=== PATIENT | female | born 1950 | race Hispanic/Latino ===

== ENCOUNTER 2017-06-05 10:29 | Inpatient (IN) | payer MEDICARE, MEDICAID ==
[2017-06-05 11:13] LABS: Hematocrit 36.5 % (36.0-47.0); Mean Platelet Volume 9.4 fL (7.4-10.4); Red Blood Cell (RBC) Count 3.47 mill/uL (4.20-5.40); White Blood Cell (WBC) Count 4.5 thou/uL (4.8-10.8)
[2017-06-05 11:37] LABS: ALT (SGPT) 25 U/L (8-55); AST (SGOT) 41 U/L (5-34); Alkaline Phosphatase 207 U/L (40-150); Anion Gap 14 mmol/L (10-20); BUN (Urea Nitrogen) 12 mg/dL (9.8-20.1); Bilirubin, Total 0.8 mg/dL (0.2-1.2); Calc. Creatinine Clearance 0 mL/min (70-130); Calcium 7.9 mg/dL (7.8-10.44); Carbon Dioxide 26 mmol/L (23-31); Chloride 97 mmol/L (98-107); Estimated GFR-MDRD 14; Globulin 4.2 g/dL (2.4-3.5); Protein, Total 6.1 g/dL (6.0-8.3)
[2017-06-05 11:39] LABS: Lactic Acid - Sepsis 4.8 mmol/L (0.5-2.2)
[2017-06-05 11:43] LABS: Neutrophil 66 % (42-75)
[2017-06-05] MEDS ORDERED: VANCOMYCIN HCL IVPB SCH (12:00)
[2017-06-05] MEDS ORDERED: Piperacillin/Tazobactam 2.25 GM in Sodium Chloride 0.9% 100 ML IVPB SCH (12:00)
[2017-06-05 12:26] LABS: Oxyhemoglobin 92.9 % (94.0-97.0); Sodium 136 mmol/L (135-148)
[2017-06-05 12:27] LABS: Mode ROOM AIR.; Modified Allen's Test POSITIVE
--- NOTE | 2017-06-05 13:03 | RAD ---
UPRIGHT PORTABLE CHEST ONE VIEW: History: 67-year-old female with dyspnea. Comparison: 04-23-17 FINDINGS: Left sided dual-lumen venous access catheter. Minimal cardiomegaly with some bilateral vascular tera estion. No confluent pneumonia or overt alveolar edema. Appearance actually appears to be slightly i mproved from prior 04-23-17 study. IMPRESSION: Cardiomegaly with vascular congestion without overt alveolar edema or confluent pneumonia. Appearanc e actually appears slightly improved from prior study. POS: [facility]
[2017-06-05] MEDS ORDERED: Ondansetron ODT 4 MG TAB SL PRN (14:38)
[2017-06-05] MEDS ORDERED: Ondansetron HCl/PF 4 MG/2 ML Vial IVP PRN (14:38)
[2017-06-05] MEDS ORDERED: Piperacillin/Tazobactam 0.75 GM, Admixture Fee 1 EACH in Sodium Chloride 0.9% 100 ML IVPB SCH (14:45)
[2017-06-05] MEDS ORDERED: Sodium Chloride 0.45% 1,000 ML IV SCH (14:45)
[2017-06-05] MEDS ORDERED: Vancomycin HCl 1 GM in Premix Bag 1 BAG IVPB SCH ×2 (14:45→16:45)
[2017-06-05 14:49] LABS: Troponin I 0.031 ng/mL (< 0.028)
[2017-06-05] MEDS ORDERED: Bisacodyl 5 MG TAB PO PRN (15:36)
[2017-06-05] MEDS ORDERED: Acetaminophen 325 MG TAB PO PRN (15:36)
[2017-06-05] MEDS ORDERED: Calcium Carbonate 500 MG ChewTAB PO PRN (15:36)
[2017-06-05] MEDS ORDERED: ISOVUE-370 76%-LOCM 1 ML ONE (15:55)
[2017-06-05 16:29] LABS: PTT 31.5 SEC (22.9-36.1)
--- NOTE | 2017-06-05 16:37 | PDOC.EVN ---
Event Note - Event Note Event Note: Attending H&P I personally evaluated the patient and discussed the management with Dr. Land. I have reviewed the written H&P and it is repeated by me. I agree with the History, Examination, Assessment and Plan documented above with any addition or exceptions noted below. Ms. Hoffmann has pulmonary edema, without compelling evidence of pneumonia. However, the nurse note her dialysis hemasplit site appears possibly infected, and her right arm AV fistula wound appears to have possible dehiscence. Cultures obtained from both sites. Wound care has been consulted. With her elevated lactate and possible wound infection, antibiotics will be continued. Had vanc and zosyn dose in ER, so she is currently covered.
[2017-06-05] MEDS ORDERED: HOLD VANCOMYCIN FOR LEVEL >20 FS SCH (16:45)
[2017-06-05] MEDS ORDERED: Vancomycin HCl 1.25 GM in Sodium Chloride 0.9% 250 ML 250 ML IVPB SCH (16:45)
[2017-06-05] MEDS ORDERED: Vancomycin Sliding Scale 1 EACH FS ONE (16:45)
[2017-06-05] MEDS ORDERED: Vancomycin HCl 750 MG in Sodium Chloride 0.9% 250 ML 250 ML IVPB SCH (16:45)
[2017-06-05] MEDS ORDERED: Vancomycin HCl 500 MG in Sodium Chloride 0.9% 100 ML IVPB SCH (16:45)
--- NOTE | 2017-06-05 16:52 | CON ---
DATE OF CONSULTATION: 06/05/2017 RENAL MEDICINE HISTORY OF PRESENT ILLNESS: Ms. Hoffmann is a 67-year-old white female who was admitted for shortness of breath. She was found to be in CHF. She also had an associated cough with whitish-greenish coloring. Due to the worsening shortness of breath, a renal consult was done. The patient is currently undergoing hemodialysis for fluid removal. I am at the bedside supervising her dialysis. I am targeting between 2 and 3 liters of fluid removal with this patient. REVIEW OF SYSTEMS: Positive for shortness of breath, no chest pain. Positive for productive cough. No nausea, no vomiting, no sore throat, no syncopal episode, no diarrhea or constipation, no abdominal pain, no hematochezia, no melena, no hematemesis. No gross hematuria. No headache, no diplopia, no ear discharge. PAST MEDICAL HISTORY: Includes, 1. ESRD - on maintenance hemodialysis - secondary to presumed diabetic nephropathy. 2. Type 2 diabetes mellitus. 3. History of morbid obesity. 4. Longstanding hypertension. 5. DJD. 6. Diabetic neuropathy. 7. Peripheral vascular disease. 8. Coronary artery disease. 9. Diastolic dysfunction. 10. COPD. 11. Obstructive sleep apnea. 12. Status post FL. 13. Diabetic gastroparesis. PAST SURGICAL HISTORY: 1. Status post PD catheter placement with subsequent removal. 2. Status post AV fistula placement. 3. Status post cuffed dialysis catheter placement. 4. Status post bilateral metatarsal amputation. 5. Status post cholecystectomy. 6. Status post inguinal hernia repair. 7. Status post cataract surgery. 8. Status post section. 9. Status post cholecystectomy. ALLERGIES: AMBIEN and MACROBID. TRAUMA: None. IMMUNIZATIONS: Up to date. HOSPITALIZATIONS: Please see past medical history. FAMILY HISTORY: Positive family history of ESRD. SOCIAL HISTORY: The patient lives in [place]. Single, lives with her daughter. Originally from [place], . Sedentary lifestyle. Status post blood transfusion. Currently, no smoking, no drug abuse. MEDICATIONS: Dulcolax 10 mg daily p.r.n., Tums 1000 mg q.4, Zosyn 2.25 grams IV q.8 hours, status post vancomycin. PHYSICAL EXAMINATION: VITAL SIGNS: Blood pressure is 125/91, heart rate 112, respiratory rate 24, pulse ox 95%, temperature 98.2. GENERAL: Awake, obese, comfortable, not in overt distress. SKIN: Adequate turgor. HEENT: Pinkish conjunctivae, anicteric sclerae. NECK: No neck mass, no carotid bruits, no JVD. CHEST: No deformities. LUNGS: Decreased breath sounds. HEART: Normal sinus rhythm, tachycardic. No murmur, no gallops, no rubs. ABDOMEN: Globular, soft, nontender, no masses. EXTREMITIES: Positive for edema. NEUROLOGIC: Awake and oriented to 3 spheres. Moving all extremities. No tremors, no asterixis. IMAGING AND LABORATORY DATA: Chest x-ray of 06/05/2017 shows cardiomegaly with CHF. White count 4.5, hemoglobin 11.3. Sodium 133, potassium 3.7, chloride 97, carbon dioxide 26, BUN 12, creatinine 3.28, glucose 130. Lactic acid is 4.8, calcium is 7.9, AST 41, ALT 25, albumin 1.9. ASSESSMENT AND PLAN: 1. Congestive heart failure - emergent hemodialysis to attempting to max out fluid removal. We will attempt between 2 and 3 liters. 2. End-stage renal disease, stable. Tolerating current hemodialysis. I am at the bedside supervising her dialysis. We will plan Sunday, Sunday, and Sunday regular hemodialysis of 4 hour each treatment. 3. Productive cough/rue wound- empiric IV antibiotics, on Zosyn Status post vancomycin. 4. Anemia - borderline. Continue to observe. 5. Hypoalbuminemia. Nepro 1 can b.i.d. 6. Recheck basic metabolic panel and CBC in a.m. MTDD
--- NOTE | 2017-06-05 17:15 | HP-2 ---
CODE STATUS: Full. PRIMARY CARE PHYSICIAN: Martir Kumar M.D. ADMITTING ATTENDING: Leonard Wilcox M.D. RESIDENT: Wing Land DO. HISTORIAN: The patient and her family. SPECIALISTS: Dr. North of Nephrology and Dr. Harris of Cardiology. CHIEF COMPLAINT: Shortness of breath. HISTORY OF PRESENT ILLNESS: A 67-year-old female with a history of end-stage renal disease, Sunday, Sunday and Sunday dialysis and status post coronary artery stent and history of atrial fibrillation, who presents to the emergency room from clinic. In the clinic, she went to see her PCP because of concerns of shortness of breath and cough for approximately 2 weeks. In the clinic, she had a pulse ox of 92% and was sent to the emergency room for increased oxygen need. When in the emergency room, her oxygen saturations were consistently above 95%; however, she was found to be both tachycardic and tachypneic. She denied any history of fever, chills or productive cough. The only symptoms that she complained were shortness of breath and dry cough for approximately 2 weeks. In the emergency room because of the tachycardia, tachypnea and recent shortness of breath, there was a concern for sepsis and patient was given 2.25 grams of Zosyn and was started on fluid resuscitation. PAST MEDICAL HISTORY: Includes end-stage renal disease, atrial fibrillation, type 2 diabetes, hypertension and coronary artery disease. PAST SURGICAL HISTORY: All toes have been amputated bilaterally. Previous left arm shunt and a current existing right arm shunt. She is status post coronary artery stenting earlier this year. ALLERGIES: AMBIEN and MACROBID. MEDICATIONS: Carvedilol 3.125 mg daily, Levemir 50 units daily, metoprolol 50 daily, Floranex daily, Coumadin 2 mg daily, Requip 0.25 mg daily, Ativan 0.5 mg q.8 hours p.r.n. for anxiety, pantoprazole 40 mg daily, Lantus 50 units daily, Januvia 50 mg b.i.d., aspirin 81, atorvastatin 40 mg daily, Zofran 4 mg p.r.n. nausea and vomiting, Voltaren 1%, Pataday 0.2%, Flonase daily and ammonium lactate 12% lotion. SOCIAL HISTORY: The patient denies tobacco, alcohol or drug use. REVIEW OF SYSTEMS: General: Denies fever, chills, changes in appetite or weight, night sweats or fatigue. Eyes: Denies vision change or eye pain. ENT : Denies nasal congestion. Respiratory: Admits to dry cough and shortness of breath. Cardiovascular: Denies any chest pain, palpitations or edema. Gastrointestinal: Denies nausea or vomiting. Genitourinary: Denies any changes. Patient is borderline oliguric. Skin: Denies rash or lesions. Musculoskeletal: Denies pain or tenderness. Neurologic: Denies any numbness, weakness or anxiety. Psychiatric: Denies anxiety or depression. PHYSICAL EXAMINATION: VITAL SIGNS: Blood pressure is 152/80, pulse is 100, respiratory rate is 32, T- max is 97.6 and pulse ox 97% on room air. Current weight 145 kilograms. GENERAL: The patient is alert and oriented x3, in no apparent distress. HEENT: PERRLA, EOMI. NECK: Supple, without lymphadenopathy. CARDIOVASCULAR: The patient has irregularly irregular heart rate without murmur. RESPIRATORY: Normal effort. No contractions. There are crackles in all lung askew bilaterally. SKIN: Warm and dry. ABDOMEN: Soft and nontender. Bowel sounds in all 4 quadrants without mass or distention. EXTREMITIES: No edema. MUSCULOSKELETAL: Tone is normal. NEUROLOGICAL: There are no focal neurological deficits. Cranial nerves II-XII are grossly intact. LABORATORY AND IMAGING DATA: CBC: Hemoglobin 11.3, hematocrit 36.5, white count 4.5, platelets 164, MCV is 105. CMP: Sodium 133, potassium 3.7, chloride 97, CO2 of 26, BUN 12, creatinine 3.28, glucose 130, calcium 7.9, total serum protein is 6.1, albumin 1.9, AST 41, ALT 25, alkaline phosphatase 207, total bilirubin 0.7 and lactate 4.8. GFR is 14. ABG shows a pH of 7.44, CO2 of 42.4 and pO2 of 73.4. EKG shows atrial fibrillation, irregular rhythm with a rate of 110. No ST changes. Chest x-ray per radiologic read shows some pulmonary congestion without evidence of pneumonia or alveolar edema. It is noted that this is an apparent improvement of her previous studies. ASSESSMENT AND PLAN: This is a 67-year-old female with likely volume overload. 1. Acute dyspnea secondary to volume overload. Consult her java web engineer, Dr. North. Admit on tele. Provide oxygen p.r.n. D-dimer, rule out what is the likelihood of pulmonary embolism. In general, trend her lactate q.3 hours until downtrends. At this point, it is unlikely that this is an infectious process. We will monitor the cultures that were drawn. 2. Hypertension is likely secondary to overload vitals q.4 hours and continue home medications. 3. Atrial fibrillation with rapid ventricular response as above. We will make a change to her medications and we will reevaluate after her likely dialysis today or tomorrow. Consult her transit mix operator, Dr. Harris, and get a PT, INR to make sure that she is anticoagulated appropriately. 4. Tachypnea. The patient was not tachypneic at the time of exam; however, this fluctuates most likely secondary to the volume overload. 5. End-stage renal disease. Hemodialysis today or tomorrow pending Dr. Nroth's recommendations. 6. Lactic acidosis. As above, repeat in the morning. Blood culture is pending. 7. Type 2 diabetes. Continue her home insulin regimen, add SSI and Accu-Cheks a.c. and at bedtime. 8. Obesity. [place] on weight loss MTDD
[2017-06-05] MEDS ORDERED: Diltiazem 125 MG in Sodium Chloride 0.9% 100 ML IVPB SCH (19:15)
[2017-06-05] MEDS ORDERED: Benzonatate 100 MG CAP PO PRN (20:45)
[2017-06-05] MEDS ORDERED: Piperacillin/Tazobactam 2.25 GM, Admixture Fee 1 EACH in Sodium Chloride 0.9% 100 ML IVPB SCH (21:00)
[2017-06-05] MEDS ORDERED: FLU VACC TS2017-18 (>65YR) 0.5 ML SYRINGE IM ONE (21:00)
[2017-06-05 21:29] LABS: Troponin I 0.018 ng/mL (< 0.028)
[2017-06-05] MEDS: Enoxaparin Sodium 100 MG/ML SYRINGE SC SCH (22:53)
--- NOTE | 2017-06-05 23:10 | CT ---
CTA OF THE THORAX UTILIZING IV CONTRAST AND PE PROTOCOL AND 3D REFORMATTED IMAGING 06/05/17 COMPARISON: Chest radiograph dated 06/05/17. FINDINGS: The patient's left IJ dialysis catheter projects into the azygos vein. No central or segmental pulmonary embolus is demonstrated. There are small bilateral pleural effusio ns. There is moderate cardiomegaly. There is severe vascular calcification involving the coronary ar teries. Visualized upper abdomen demonstrates postsurgical change of a prior cholecystectomy. There is a 2.5 cm adenoma involving the right adrenal gland. No definite acute osseous abnormality is alayna dent. IMPRESSION: 1. No central or segmental pulmonary embolus. 2. Small bilateral pleural effusions may reflect changes of volume overload or mild CHF. 3. The dialysis catheter within the left IJ is positioned in the azygos vein. Would recommend r epositioning. 4. Right adrenal adenoma. 5. Cholecystectomy. POS: [facility]
[2017-06-05] MEDS: Piperacillin/Tazobactam 2.25 GM in Sodium Chloride 0.9% 100 ML IVPB SCH (23:55)
[2017-06-06 04:43] LABS: #Eosinphils 0.1 thou/uL (0.0-0.7); #Lymphocytes 1.1 thou/uL (1.20-3.40); #Monocytes 0.4 thou/uL (0.11-0.59); #Neutrophils 2.6 thou/uL (1.40-6.50); %Basophils 1.1 % (0.0-1.0); %Eosinophils 2.6 % (0.0-10.0); %Lymphocytes 25.2 % (21.0-51.0); %Monocytes 9.6 % (0.0-10.0); Hematocrit 34.7 % (36.0-47.0); Mean Platelet Volume 9.1 fL (7.4-10.4); Red Blood Cell (RBC) Count 3.31 mill/uL (4.20-5.40); White Blood Cell (WBC) Count 4.2 thou/uL (4.8-10.8)
[2017-06-06 05:13] LABS: Anion Gap 12 mmol/L (10-20); BUN (Urea Nitrogen) 8 mg/dL (9.8-20.1); Calc. Creatinine Clearance 34 mL/min (70-130); Calcium 7.5 mg/dL (7.8-10.44); Carbon Dioxide 25 mmol/L (23-31); Chloride 101 mmol/L (98-107); Estimated GFR-MDRD 19
[2017-06-06] MEDS: Piperacillin/Tazobactam 2.25 GM in Sodium Chloride 0.9% 100 ML IVPB SCH ×2 (06:03→14:26)
--- NOTE | 2017-06-06 06:07 | CON ---
DATE OF CONSULTATION: 06/05/2017 HISTORY OF PRESENT ILLNESS: Nishant Hoffmann is a 67-year-old female who does not speak Arabic and the history was obtained from review of her record. She was initially seen by Dr. Harris in 06/2014 for a non-STEMI. It was felt that she should ultimately undergo cardiac catheterization once her pneumonia had improved. She was again seen in 01/2015 when she presented with fever, sepsis and abnormal cardiac enzymes. She ultimately underwent cardiac catheterization and was found to have severe 3-vessel disease. She was seen in consultation with Dr. Malachi Saucedo and it was felt that she was not a good surgical candidate and that she probably would have very poor recovery from bypass. She underwent bare metal stent placement by Dr. Joel in the proximal and mid RCA with a 4.0 x 30 mm stent postdilated to 4.5 mm and Integrity 3.0 x 26 mm stent in the proximal and mid LAD postdilated with 3.5 mm balloon. She has had multiple admissions over the years for dialysis with problems with dialysis catheter as well as AV fistula access. Most recently, she was admitted in 04/2017. Echocardiogram on that admission revealed ejection fraction of 50%-55% with mild left atrial enlargement, mild mitral regurgitation , sclerotic aortic valve and mild tricuspid regurgitation. She had presented with an infected AV fistula. She also had missed peritoneal dialysis for 5 days and became extremely fluid overloaded. She was in atrial fibrillation with rapid ventricular response, treated with intravenous Cardizem. Once she was restarted on her usual medications and dialyzed, apparently the rate was controlled. It is unclear from discharge summary if she ever returned to sinus rhythm. She now presents with complaints of shortness of breath and cough for 2 weeks. She denies any chest discomfort. She has been found to be in atrial fibrillation with rapid ventricular response. There was concern for sepsis. She was given Zosyn 2.25 mg and has been started on vancomycin. PAST MEDICAL HISTORY: End-stage renal disease, atrial fibrillation, diabetes, hypertension, hyperlipidemia, coronary artery disease status post stent placement. OPERATIONS: Bare metal stent placement in the proximal and mid LAD and proximal and mid RCA, surgery for AV shunts. ALLERGIES: AMBIEN, MACROBID. MEDICATIONS: Aspirin 81 mg daily, atorvastatin 40 daily, calcitriol 0.25 mcg daily, calcium acetate t.i.d., Tums 500 mg t.i.d., carvedilol 3.125 b.i.d., Colace 100 b.i.d., Flonase 1 spray each side b.i.d., [place] p.r.n., Ativan 0.5 mg t.i.d. p.r.n., losartan 50 daily, melatonin 5 mg p.r.n., metoprolol 50 daily , pantoprazole 40 at bedtime, sertraline 50 daily, Januvia 50 mg daily, tramadol 50 mg t.i.d. p.r.n., warfarin 2 mg daily. SOCIAL HISTORY: She does not smoke or drink. REVIEW OF SYSTEMS: Unobtainable due to the language barrier. No forest resources professor available at this time. PHYSICAL EXAMINATION: VITAL SIGNS: Blood pressure 125/91, pulse of 120, irregularly irregular. HEENT: PERRL. NECK: Supple. CHEST: Reveals crackles in the bases bilaterally. CARDIAC: S1 and S2 are normal, without any S3, S4 or murmurs. The pulse is irregularly irregular. ABDOMEN: Obese, normal bowel sounds, no tenderness. EXTREMITIES: Revealed 3-4+ edema bilaterally. NEUROLOGIC: Grossly intact. LABORATORY: EKG reveals atrial fibrillation with rapid ventricular response of 110 per minute and nonspecific ST segment changes. INR 1.3. Hemoglobin 11.3, hematocrit 36.5, white count 4500, platelets 168,000. A pH 7.44, pCO2 of 42.4, pO2 of 73.4. Sodium 133, potassium 3.7, chloride 97, carbon dioxide 26, BUN 12 , creatinine 3.23. Lactic acid initially was 4.8. Troponin I 0.031. IMPRESSION: 1. End-stage renal disease, currently volume overloaded. 2. Possible sepsis. 3. Atrial fibrillation with fast ventricular response. She was in atrial fibrillation on her last admission. She is not adequately anticoagulated at this time. 4. Diabetes. 5. Hypercholesterolemia. 6. Obesity. 7. History of stent placement in the left anterior descending and the right coronary artery in 2014. PLAN: She was receiving Cardizem 5 mg per hour; however, this was stopped due to some bradycardia, now the rate it is back up in the 115 to 120 range. I will restart Cardizem at 3 mg per hour. Also, she is inadequately anticoagulated at this time. Her Coumadin dose will be increased and she will be given Lovenox 1 mg/kg daily with her renal insufficiency. ADDENDUM: Apparently Ms. Hoffmann was not taking warfarin at home since she has had problems with her AV fistula. Therefore, I will go ahead and start Lovenox 1 mg/kg daily for stroke prophylaxis. Further decision regarding Coumadin can be made after discussing with Dr. Contreras. BEKAH
--- NOTE | 2017-06-06 08:17 | PDOC.FM ---
- Subjective Subjective: Pt has no specific complaints today and is no longer SOB and cough has improved. All other symptoms in ROS are negative. Pt had dialysis last night and will go again today. There were no acute events over night. - Objective Vital Signs & Weight: Vital Signs (12 hours) Temp Pulse Resp BP Pulse Ox 06/06/17 07:00 98.3 F 111 H 18 109/53 L 94 L 06/06/17 04:00 98.3 F 103 H 24 H 107/51 L 96 06/06/17 00:00 98.3 F 115 H 22 H 116/98 H 100 Weight Weight 97 kg I&O: 06/05/17 06/06/17 06/07/17 06:59 06:59 06:59 Intake Total 300 Balance 300 Result Diagrams: 06/06/17 04:18 06/06/17 04:18 Phys Exam - Physical Examination Constitutional: NAD HEENT: PERRLA, moist MMs Neck: no JVD, full ROM diffuse crackles. improved from yesterday. Cardiovascular: no significant murmur irregularly irregular. Gastrointestinal: soft, non-tender Musculoskeletal: no edema Neurological: non-focal, normal sensation, moves all 4 limbs Psychiatric: normal affect, A&O x 3 Deviation from normal: possible dehiscence of right arm shunt revision. No drainage today. Non TTP Dx/Plan (1) Fluid overload Code(s): E87.70 - FLUID OVERLOAD, UNSPECIFIED Status: Acute Qualifiers: Hypervolemia type: other Qualified Code(s): E87.79 - Other fluid overload (2) Atrial fibrillation with RVR Code(s): I48.91 - UNSPECIFIED ATRIAL FIBRILLATION Status: Chronic (3) End stage renal disease on dialysis Code(s): N18.6 - END STAGE RENAL DISEASE; Z99.2 - DEPENDENCE ON RENAL DIALYSIS Status: Chronic (4) HLD (hyperlipidemia) Code(s): E78.5 - HYPERLIPIDEMIA, UNSPECIFIED Status: Chronic Qualifiers: Hyperlipidemia type: unspecified Qualified Code(s): E78.5 - Hyperlipidemia , unspecified (5) HTN (hypertension) Code(s): I10 - ESSENTIAL (PRIMARY) HYPERTENSION Status: Chronic Qualifiers: Hypertension type: essential hypertension Qualified Code(s): I10 - Essential (primary) hypertension (6) Morbid obesity Code(s): E66.01 - MORBID (SEVERE) OBESITY DUE TO EXCESS CALORIES Status: Chronic - Plan Plan: 1. Fluid overload -pt received HD yesterday and will get it again today, per Dr North's recommendation -O2 sat has improved along with work of breathing -pt currently appears to be euvolemic 2. Afib w/RVR -currently on a cardizem drip per Dr. Larios's recommendation -still has HR over 100, will consider increasing dose -pt was placed on Lovenox for anticoagulation dt having a subtheraputic INR. There is some question of compliance 3. HTN -controlled. -Continue home meds -follow BP after HD 4. ESRD -HD as above 5. DM2 -consistent carb diet -SSI -Home insulin 6. HLD -continue home statin 7. Morbid obesity -[place] on weight loss 8. Anemia -mild and asymptomatic -likely 2/2 ESRD
--- NOTE | 2017-06-06 09:14 | PRG ---
DATE OF SERVICE: 06/06/2017 SUBJECTIVE: Ms. Hoffmann is a 67-year-old female undergoing hemodialysis. I am at the bedside supervising her dialysis. She voices no new complaints. Her breathing is much better. Please not e she received emergent dialysis yesterday for the CHF. We removed about 1 liter. This morning she feels better. OBJECTIVE: VITAL SIGNS: Blood pressure 109/53, heart rate 111, ranging from 103 to 111, respiratory rate 18, t emperature 98.3, pulse ox 94%. GENERAL: The patient is noted to be awake, alert, comfortable, obese, not in distress. SKIN: Adequate turgor. HEENT: Pinkish conjunctivae, anicteric sclerae. NECK: No neck mass, no carotid bruits, no JVD. CHEST: No deformities. LUNGS: Clear breath sounds. No wheezing or crackles. HEART: Normal sinus rhythm. No murmur, no gallops or rubs. ABDOMEN: Globular, soft, nontender, no masses. EXTREMITIES: No edema, no deformities. MEDICATIONS: 06/06/2017 - Reviewed. LABORATORY: 06/06/2017 - White count 4.2, hemoglobin 11.2. Sodium 135, potassium 3.4, chloride 101 , carbon dioxide 25, BUN 8, creatinine 2.58, glucose 97, calcium 7.5. ASSESSMENT AND PLAN: 1. Congestive heart failure, clinically improving. I am trying to attempt to remove 3 liters with dialysis today. Please note her shortness of breath is actually much improved. She received extra dialysis yesterday. 2. End-stage renal disease. Continue Sunday, Sunday, Sunday dialysis regimen. Review of the [facility] Kt/V suggested that she is adequately dialyzed. 3. Blood culture of 06/05/2017 showed gram positive cocci. Repeat culture using the dialysis mara ter, no growth to date. Please note that this is one culture out of 4 that was positive. Currentl y on IV antibiotics. I agree with current management.
--- NOTE | 2017-06-06 11:18 | ADD-PRG ---
DATE OF SERVICE: 06/06/2017 This is an addendum to the note of Dr. Wing Land. Ms. Hoffmann is a 67-year-old female with end-stage renal disease. She presented to the emerge ncy room volume overloaded and Dr. North has been consulted. She underwent dialysis yesterday and is getting it again this morning where I examined her at bedside. She states she is feeling better. S he has no shortness of breath. She has no chest pain. Given the possibility of sepsis upon admissi on, blood cultures were drawn and 1 culture is growing a gram positive cocci in clusters. This is, however, one of four cultures and possibly could be a contaminant. Given however, Ms. Hoffmann this yi s have end-stage renal disease and is at risk, we will treat with intravenous antibiotics for anothe r day and monitor her closely. We appreciate the input from Dr. North.
[2017-06-06 13:20] VITALS: BMI 40.4
--- NOTE | 2017-06-06 15:36 | CON ---
DATE OF CONSULTATION: 06/06/2017 REASON FOR CONSULTATION: [facility] [place] HISTORY OF PRESENT ILLNESS: This is a 67-year-old female who is currently in the intermediate care unit after she came in last night fluid overloaded. She is a chronic hemodialysis patient. She diann shi gets dialysis on Sunday, Sunday and Sunday. She is Lithuanian speaking only. She is telling me now that she feels okay. She had emergent dialysis earlier this morning. PAST MEDICAL HISTORY: 1. End-stage renal disease. 2. Obesity. 3. Neuropathy. 4. Diastolic dysfunction. 5. Congestive heart failure. 6. Chronic obstructive pulmonary disease. 7. Obstructive sleep apnea. 8. Myocardial infarction. 9. Gastroparesis. PAST SURGICAL HISTORY: 1. Peritoneal dialysis catheter placement and removal. 2. Fistula placement. 3. Now has a tunneled dialysis catheter in the left IJ. 4. Bilateral metatarsal amputation. 5. Cholecystectomy. 6. Cataract surgery. 7. section. 8. Cholecystectomy. ALLERGIES: AMBIEN and MACROBID. FAMILY MEDICAL HISTORY: Remarkable for end-stage renal disease. SOCIAL HISTORY: Does not smoke, does not consume alcohol and does not use illicit drugs. MEDICATIONS: Reviewed - see chart. REVIEW OF SYSTEMS: Otherwise, negative. PHYSICAL EXAMINATION: VITAL SIGNS: Temperature 98.3, pulse 116, respirations 20, O2 sat 100% and blood pressure 103/81. GENERAL: She is awake and alert, in no distress. HEENT: Pupils are reactive. Sclerae anicteric. Oropharynx is clear. LUNGS: Few crackles both bases. CARDIAC: S1, S2 and regular. ABDOMEN: Soft and nontender. EXTREMITIES: Trace edema. LABORATORY AND IMAGING DATA: White blood cell count 4.2, hematocrit 34.7 and platelet count 130. S odium 135, potassium 3.4, chloride 101, CO2 of 25, BUN 8, creatinine 2.5 and glucose 97. Chest x-ra y at the time of admission demonstrated bilateral small effusions. ASSESSMENT: Status post respiratory failure secondary to fluid overload - this has been corrected b y emergent dialysis. RECOMMENDATIONS: I wish she can be transferred out to the telemetry floor at any time. I have revi ewed the orders. My only suggestion would be to stop the antibiotics if the cultures come back nega tive. It is far more likely that this is truly fluid overload versus pneumonia.
--- NOTE | 2017-06-06 16:25 | PDOC.CTH ---
<Kirti Lakhani - Last Filed: 06/06/17 16:23> Cardiology Progress Note - Subjective The pt was seen and examined. No overnight events. No cardiac complaints. Per family, she continues to having diarrhea. Denied ABD pain or discomfort at this time - Objective Vital Signs Temp Pulse Resp BP Pulse Ox 06/06/17 15:36 98.3 F 125 H 18 114/97 H 95 06/06/17 15:00 120 H 102/62 06/06/17 14:28 116 H 18 103/81 100 06/06/17 12:55 121 H 18 93/51 L 99 06/06/17 07:50 98.3 F 106 H 20 115/66 95 06/06/17 07:00 98.3 F 111 H 18 109/53 L 94 L Admit Weight 221 lb Weight 213 lb 13.574 oz 06/05/17 06/06/17 06/07/17 06:59 06:59 06:59 Intake Total 500 Balance 500 - Physical Examination General/Neuro: alert & oriented x3 Neck: no JVD present Lungs: CTA Heart: other: (Irregular) Abdomen: soft Extremities: other: (2+ in bilat. dorsalis pedis; no edema) - Telemetry Telemetry Rhythm: Afib with HR 110-120s - Labs Result Diagrams: 06/06/17 04:18 06/06/17 04:18 Troponin/CKMB CK-MB (CK-2) 1.0 ng/mL (0-6.6) 06/05/17 20:48 Troponin I 0.018 ng/mL (< 0.028) 06/05/17 20:48 - Assessment/Plan 1. Afib w/RVR - Hx of chronic Afib with Coumadin (her Coumadin was on hold due to oozing from her AV graft); HR has been 100-120s; increase Diltiazem IV from 3mg to 5mg/h; On Lovenox; cont. monitor on tele 2. Sepsis - on IV antibiotics; managed by PCP 3. CAD with s/p stent placement in LAD and RCA in 2014 - stable; cont. monitor on tele 4. ESRD - HD today; managed by Dr North 5. HTN - stable with current medication 6. Hyperlipidemia - start Lipitor 40mg daily 7. PVD with hx of bilat. toe amputation - cont. monitor 8. Morbid obesity - MAR reviewed Review of Systems - Review of Systems Constitutional: reports: no symptoms reported EENTM: reports: no symptoms reported Respiratory: reports: no symptoms reported Cardiac (ROS): reports: no symptoms reported ABD/GI: reports: no symptoms reported : reports: no symptoms reported Musculoskeletal: reports: no symptoms reported Skin: reports: no symptoms reported Neurological: reports: no symptoms reported <Ayleen Harris - Last Filed: 06/06/17 20:41> Cardiology Progress Note - Objective Vital Signs Temp Pulse Resp BP Pulse Ox 06/06/17 17:30 133 H 124/59 L 06/06/17 17:15 118 H 102/61 06/06/17 17:00 121 H 116/72 06/06/17 16:52 117 H 127/63 100 06/06/17 16:00 130 H 102/62 100 06/06/17 15:36 98.3 F 125 H 18 114/97 H 95 06/06/17 15:00 120 H 102/62 06/06/17 14:28 116 H 18 103/81 100 06/06/17 12:55 121 H 18 93/51 L 99 Admit Weight 221 lb Weight 213 lb 13.574 oz 06/05/17 06/06/17 06/07/17 06:59 06:59 06:59 Intake Total 740 Output Total 2000 Balance -1260 - Labs Result Diagrams: 06/06/17 04:18 06/06/17 04:18 Troponin/CKMB CK-MB (CK-2) 1.0 ng/mL (0-6.6) 06/05/17 20:48 Troponin I 0.018 ng/mL (< 0.028) 06/05/17 20:48 - Assessment/Plan Pt. was seen and eval. by me. She remains in atrial fib. This is not a new problem for her. The HR is still elevated and she remains on diltiazem. We will increase the dose if she tolerates it. I agree with the A/P by the OPERATING ROOM TECHNICIAN.
[2017-06-06] MEDS ORDERED: Diltiazem 125 MG in Sodium Chloride 0.9% 100 ML IVPB SCH (16:30)
[2017-06-06] MEDS: Enoxaparin Sodium 100 MG/ML SYRINGE SC SCH (20:37)
[2017-06-06] MEDS ORDERED: Atorvastatin Calcium 40 MG TAB PO SCH (21:00)
[2017-06-07 07:41] LABS: #Eosinphils 0.1 thou/uL (0.0-0.7); #Lymphocytes 1.3 thou/uL (1.20-3.40); #Monocytes 0.4 thou/uL (0.11-0.59); #Neutrophils 2.2 thou/uL (1.40-6.50); %Basophils 0.8 % (0.0-1.0); %Eosinophils 3.5 % (0.0-10.0); %Lymphocytes 31.9 % (21.0-51.0); %Monocytes 9.5 % (0.0-10.0); Mean Platelet Volume 8.7 fL (7.4-10.4); Red Blood Cell (RBC) Count 2.99 mill/uL (4.20-5.40)
[2017-06-07 08:02] LABS: Anion Gap 12 mmol/L (10-20); BUN (Urea Nitrogen) 6 mg/dL (9.8-20.1); Calc. Creatinine Clearance 37 mL/min (70-130); Calcium 7.5 mg/dL (7.8-10.44); Carbon Dioxide 25 mmol/L (23-31); Chloride 101 mmol/L (98-107); Estimated GFR-MDRD 21
--- NOTE | 2017-06-07 08:09 | PDOC.FM ---
- Subjective Subjective: Pt complains of nausea w/o vomiting over night w/epigastric pain. She denies chest pain or SOB. There were no acute issues over night. She continues to have an elevated HR on diltiazem. - Objective Vital Signs & Weight: Vital Signs (12 hours) Temp Pulse Resp BP Pulse Ox 06/07/17 07:25 99.2 F 114 H 18 121/58 L 99 06/07/17 03:32 98.9 F 110 H 16 126/59 L 98 06/06/17 23:24 98.9 F 101 H 16 115/58 L 99 06/06/17 20:15 98.2 F 133 H 16 96 Weight Admit Weight 100.244 kg Weight 97 kg I&O: 06/06/17 06/07/17 06/08/17 06:59 06:59 06:59 Intake Total 740 Output Total 1999 Balance -1260 Result Diagrams: 06/07/17 07:33 06/07/17 07:33 Phys Exam - Physical Examination Constitutional: NAD HEENT: oral pharynx no lesions Neck: no nodes Respiratory: clear to auscultation bilateral Cardiovascular: no significant murmur irregularly irregular and tachy Gastrointestinal: soft, non-tender, positive bowel sounds Musculoskeletal: no edema Neurological: non-focal, normal sensation, moves all 4 limbs Psychiatric: normal affect, A&O x 3 Skin: no rash Dx/Plan (1) Fluid overload Code(s): E87.70 - FLUID OVERLOAD, UNSPECIFIED Status: Acute Qualifiers: Hypervolemia type: other Qualified Code(s): E87.79 - Other fluid overload (2) Atrial fibrillation with RVR Code(s): I48.91 - UNSPECIFIED ATRIAL FIBRILLATION Status: Chronic (3) End stage renal disease on dialysis Code(s): N18.6 - END STAGE RENAL DISEASE; Z99.2 - DEPENDENCE ON RENAL DIALYSIS Status: Chronic (4) HLD (hyperlipidemia) Code(s): E78.5 - HYPERLIPIDEMIA, UNSPECIFIED Status: Chronic Qualifiers: Hyperlipidemia type: unspecified Qualified Code(s): E78.5 - Hyperlipidemia , unspecified (5) HTN (hypertension) Code(s): I10 - ESSENTIAL (PRIMARY) HYPERTENSION Status: Chronic Qualifiers: Hypertension type: essential hypertension Qualified Code(s): I10 - Essential (primary) hypertension (6) Morbid obesity Code(s): E66.01 - MORBID (SEVERE) OBESITY DUE TO EXCESS CALORIES Status: Chronic - Plan Plan: 1. Fluid overload -resolved. Lungs are clear, pt is no increased work to breathe. Sats are normal. - pt is euvolemic. continue to monitor status - continue MWF HD 2. Afib w/RVR -currently on a cardizem drip per Dr. Harris' recommendation -still has HR over 100. Drip is being managed by cards. Will discuss oysterman plan today. -pt was placed on Lovenox for anticoagulation dt having a subtheraputic INR after pt was taken off of warfarin to prep for possible shunt revision 3. Positive cultures -unclear as to if this is contamination or not. 2 cultures are positive for gram pos in clusters from the same site. others are negative. Final result should be this afternoon. Given clinical picture and vitals, infection seems unlikely. -continue iv abx until infection can be ruled out. -pt will be ready for dc once infection is ruled out and HR is under control. 3. HTN -controlled. -Continue home meds -follow BP after HD -pressures have been boarder line low dt cardizem 4. ESRD -HD as above 5. DM2 -consistent carb diet -SSI -Home insulin 6. HLD -continue home statin 7. Morbid obesity -[place] on weight loss 8. Anemia -mild and asymptomatic -likely 2/2 ESRD
[2017-06-07] MEDS ORDERED: Non-Formulary Item 1 EACH (Diclofenac Sodium [Diclofenac Sodium 1% Gel] 2 GM) TOP PRN (08:46)
[2017-06-07] MEDS ORDERED: HYDROcodone/Acetaminophen 10/325 mg Tablet PO PRN (08:46)
[2017-06-07] MEDS ORDERED: Lorazepam 0.5 MG TAB PO PRN (08:46)
[2017-06-07] MEDS ORDERED: traMADol HCl 50 MG TAB PO PRN (08:46)
[2017-06-07] MEDS ORDERED: Non-Formulary Item 1 EACH (Melatonin [Melatonin] 5 MG) PO PRN (08:46)
[2017-06-07] MEDS ORDERED: ONDANSETRON HCL 4 MG PO PRN (08:46)
[2017-06-07] MEDS ORDERED: Non-Formulary Item 1 EACH (Fluticasone Propionate [Flonase Allergy Relief] 1 SPRAY) EA NARE PRN (08:46)
[2017-06-07] MEDS ORDERED: Non-Formulary Item 1 EACH (Losartan Potassium [Cozaar] 50 MG) PO SCH (09:00)
[2017-06-07] MEDS ORDERED: DOCUSATE SODIUM 100 MG PO SCH (09:00)
[2017-06-07] MEDS ORDERED: Non-Formulary Item 1 EACH (Sertraline Hcl [Zoloft] 50 MG) PO SCH (09:00)
[2017-06-07] MEDS ORDERED: Non-Formulary Item 1 EACH (Olopatadine Hcl [Pataday] 1 DROP) EA EYE SCH (09:00)
[2017-06-07] MEDS ORDERED: CALCITRIOL 0.25 MCG PO SCH (09:00)
[2017-06-07] MEDS ORDERED: Clotrimazole 1 % Cream 30 GM TUBE TOP SCH (09:00)
[2017-06-07] MEDS ORDERED: Nystatin Cream 15 GM TUBE TOP SCH (09:00)
[2017-06-07] MEDS ORDERED: Fluticasone Propionate Nasal Spray 16 gm Bottle NASAL PRN (09:02)
--- NOTE | 2017-06-07 09:12 | PRG ---
DATE OF SERVICE: 06/07/2017 SUBJECTIVE: Ms. Hoffmann is a 67-year-old female with ESRD, currently on maintenance hemodialy sis. I am currently at her bedside supervising her dialysis. The patient has also rapid atrial fib rillation. Currently on IV Cardizem. In addition, report of the blood culture showed that 2 out of 2 cultures were positive. This morning she denies any chest pain, shortness of breath. Please note she also came in volume ov erloaded. OBJECTIVE: VITAL SIGNS: Blood pressure is 121/58, heart rate 114, respiratory rate 18, temperature 99.2, pulse oximetry 99%. GENERAL: Noted to be awake, comfortable, obese, not in distress. SKIN: Adequate turgor. HEENT: Pinkish conjunctivae, anicteric sclerae. NECK: No neck mass, no carotid bruits, no JVD. CHEST: No deformities. LUNGS: Clear breath sounds. No wheezing, no crackles. HEART: Normal sinus rhythm. No murmur, no gallops or rubs. ABDOMEN: Globular, soft. EXTREMITIES: Trace edema. MEDICATIONS: 06/07/2017 - Reviewed. LABORATORY: 06/07/2017 - White count 4, hemoglobin 10. Sodium 135, potassium 3.1, chloride 101, ca rbon dioxide 25, BUN 6, creatinine 2.32, calcium is 7.5. ASSESSMENT AND PLAN: 1. Mild hypokalemia. We will adjust potassium bath with the dialysis. 2. Atrial fibrillation - currently on IV Cardizem. 3. Coumadin on hold due to possible revision of access. 4. Bacteremia, currently on IV antibiotics. Please note that the second blood culture grew gram po sitive cocci. 5. Currently on IV antibiotics. A comment made that the culture was positive for coagulase negativ e staphylococci. The patient is noted to be on IV vancomycin. 6. Borderline anemia. We will continue to observe. If no plans for surgery, we could go ahead and consider starting back this patient on Coumadin. 7. We will recheck basic met and CBC in a.m.
[2017-06-07] MEDS ORDERED: DICLOFENAC SODIUM 1% TOP PRN (09:13)
[2017-06-07] MEDS ORDERED: MELATONIN 5 MG PO PRN (09:14)
--- NOTE | 2017-06-07 09:28 | PQF ---
DATE: 06-06-17 ATTN: DR. JOE MARTÍNEZ / DR. RUPA MONTE Please exercise your independent, professional judgment in responding to the clarification form. Clinical indicators are provided on the bottom of this form for your review Please check appropriate box(s): HEART FAILURE: A.TYPE: [ ] Systolic / HFrEF [ ] Diastolic / HFpEF [ ] Combined Systolic / Diastolic B.ACUITY [ ] Acute[ ] Acute on Chronic [ ] Chronic C.WITH (if appropriate) [ ] Hypertensive Heart Disease[ ] Hypertensive Heart and Kidney Disease [ ] Other diagnosis __ESRD w/fluid overload. Reviewed all pervious cardiac imaging which is not suggestive of diastolic or systolic CHF [ ] Unable to determine In addition, please specify: Present on Admission (POA): [ ] Yes [ ] No [ ] Unable to determine For continuity of documentation, please document condition throughout progress notes and discharge summary. Thank You. CLINICAL INDICATORS - SIGNS / SYMPTOMS / LABS H&P: ACUTE DYSPNEA 2/2 TO VOLUME OVERLOAD CONSULT NOTE DR. CHAVARRIA 06-05-17: SHE WAS FOUND TO BE IN CHF. ASSESSMENT AND PLAN: CONGESTIVE HEART FAILURE. HX OF DIASTOLIC DYSFUNCTION CONSULT NOTE DR. CHAVARRIA 06-06-17: PLEASE NOTE SHE RECEIVED EMERGENT DIALYSIS YESTERDAY FOR THE CHF. PN DR. EARL BARRAGAN: MS. GARCIA HAS PULMONARY EDEMA CXR 06-05-17: CARDIOMEGALY WITH VASCULAR CONGESTION WITHOUT OVERT ALVEOLAR EDEMA OR CONFLUENT PNEUMONIA. RISKS: H&P: HX OF A FIB, HTN, CAD TREATMENTS: CARDIAC MONITORING / TELEMETRY (MAR) TOPROL XL (This form is maintained as a part of the permanent medical record) 2014 [employer]. All Rights Reserved RENATO [email or web address] Office: [phone] BEK[place]
[2017-06-07] MEDS: Losartan 25 MG TAB PO SCH (10:39)
[2017-06-07] MEDS: Atorvastatin Calcium 40 MG TAB PO SCH (10:40)
[2017-06-07] MEDS: Calcitriol 0.25 MCG CAP PO SCH (10:40)
[2017-06-07] MEDS: Calcium Carbonate 500 MG ChewTAB PO SCH ×3 (10:41→21:40)
[2017-06-07] MEDS: Docusate 100 MG CAP PO SCH ×2 (10:41→20:00)
--- NOTE | 2017-06-07 12:03 | ADD-PRG ---
DATE OF SERVICE: 06/07/2017 This is an addendum to the note of Dr. Wing Land. Ms. Hoffmann is awake and alert this morning. She does complain of some slight nausea and epigastric di scomfort. She has a history of GERD and we have placed her back on her Protonix. Her heart rate is still elevated and her diltiazem drip has been increased per Cardiology. If this resolves today an d she undergoes dialysis tomorrow, we may be able to discharge her later tomorrow. We will continue to follow also with Cardiology as stated above for her atrial fibrillation.
[2017-06-07] MEDS: Calcium Acetate 667 MG CAP PO SCH ×2 (12:50→17:17)
[2017-06-07] MEDS: Ondansetron ODT 4 MG TAB PO PRN ×2 (13:05→21:40)
--- NOTE | 2017-06-07 13:33 | PDOC.CTH ---
<Kirti Lakhani - Last Filed: 06/07/17 13:35> Cardiology Progress Note - Subjective The pt was seen and examined. No overnight events. No cardiac complaints. She had N&V x1 episode during the assessment. Cont. having diarrhea - Objective Vital Signs Temp Pulse Resp BP Pulse Ox 06/07/17 07:25 99.2 F 114 H 18 121/58 L 99 06/07/17 03:32 98.9 F 110 H 16 126/59 L 98 Admit Weight 221 lb Weight 213 lb 13.574 oz 06/06/17 06/07/17 06/08/17 06:59 06:59 06:59 Intake Total 740 Output Total 2000 Balance -1260 - Physical Examination General/Neuro: alert & oriented x3 Neck: no JVD present Lungs: CTA Heart: other: (Irregular) Extremities: other: (No edema) - Telemetry Telemetry Rhythm: Afib with HR 90-100s - Labs Result Diagrams: 06/07/17 07:33 06/07/17 07:33 Troponin/CKMB CK-MB (CK-2) 1.0 ng/mL (0-6.6) 06/05/17 20:48 Troponin I 0.018 ng/mL (< 0.028) 06/05/17 20:48 - Assessment/Plan 1. Afib w/RVR - Hx of chronic Afib with Coumadin (her Coumadin was on hold for her AV graft revision); HR has been 90-100 with Diltiazem IV 5mg/h and Metoprolol 50mg daily; On Lovenox; cont. monitor on tele 2. Sepsis - on IV antibiotics; managed by PCP 3. CAD with s/p stent placement in LAD and RCA in 2014 - stable; cont. monitor on tele 4. ESRD - HD on MWF; managed by Dr North 5. HTN - stable with current medication; cont. monitor 6. Hyperlipidemia - start Lipitor 40mg daily 7. PVD with hx of bilat. toe amputation - cont. monitor 8. Morbid obesity MAR reviewed Review of Systems - Review of Systems Constitutional: reports: no symptoms reported EENTM: reports: no symptoms reported Respiratory: reports: no symptoms reported Cardiac (ROS): reports: no symptoms reported ABD/GI: reports: see HPI : reports: no symptoms reported Musculoskeletal: reports: no symptoms reported <Ayleen Harris - Last Filed: 06/07/17 17:16> Cardiology Progress Note - Objective Vital Signs Temp Pulse Resp BP Pulse Ox 06/07/17 08:00 99.2 F 114 H 18 97 06/07/17 07:25 99.2 F 114 H 18 121/58 L 99 Admit Weight 221 lb Weight 213 lb 13.574 oz 06/06/17 06/07/17 06/08/17 06:59 06:59 06:59 Intake Total 740 Output Total 1999 Balance -1260 - Labs Result Diagrams: 06/07/17 07:33 06/07/17 07:33 Troponin/CKMB CK-MB (CK-2) 1.0 ng/mL (0-6.6) 06/05/17 20:48 Troponin I 0.018 ng/mL (< 0.028) 06/05/17 20:48 - Assessment/Plan Pt. seen and eval. by me. I agree with the A/P by the VP PRODUCT. It would be advantageous to resume coumadin when possible due to her afib.to decrease the risk of embolic phenomenon..
[2017-06-07] MEDS: Ammonium Lactate 12% Lotion 225 GM BOT TOP SCH ×2 (17:09→21:54)
[2017-06-07] MEDS: Clotrimazole 1 % Cream 30 GM TUBE TOP SCH ×2 (17:09→21:54)
[2017-06-07] MEDS ORDERED: ROPINIROLE HCL 0.25 MG PO SCH (21:00)
[2017-06-07] MEDS: rOPINIRole HCl 0.25 MG TAB PO SCH (21:40)
[2017-06-07] MEDS: Enoxaparin Sodium 100 MG/ML SYRINGE SC SCH (21:41)
[2017-06-07] MEDS: Ketotifen Fumarate 0.025% Ophth Soln 5 ml Bottle EA EYE SCH (23:03)
[2017-06-07] MEDS: Nystatin Cream 15 GM TUBE TOP SCH (23:03)
[2017-06-08 05:32] LABS: #Eosinphils 0.2 thou/uL (0.0-0.7); #Lymphocytes 1.3 thou/uL (1.20-3.40); #Monocytes 0.4 thou/uL (0.11-0.59); #Neutrophils 2.7 thou/uL (1.40-6.50); %Basophils 1.1 % (0.0-1.0); %Eosinophils 4.6 % (0.0-10.0); %Lymphocytes 28.7 % (21.0-51.0); %Monocytes 8.1 % (0.0-10.0); Hematocrit 31.2 % (36.0-47.0); Mean Platelet Volume 9.1 fL (7.4-10.4); Red Blood Cell (RBC) Count 2.99 mill/uL (4.20-5.40); White Blood Cell (WBC) Count 4.7 thou/uL (4.8-10.8)
[2017-06-08 05:46] LABS: Anion Gap 11 mmol/L (10-20); BUN (Urea Nitrogen) 9 mg/dL (9.8-20.1); Calc. Creatinine Clearance 27 mL/min (70-130); Carbon Dioxide 24 mmol/L (23-31); Chloride 102 mmol/L (98-107); Estimated GFR-MDRD 15
[2017-06-08 06:28] LABS: Vancomycin, Random 6.3 ug/mL (See Comment)
[2017-06-08] MEDS ORDERED: Ondansetron HCl/PF 8 MG in Sodium Chloride 0.9% 50 ML IVPB PRN (08:28)
--- NOTE | 2017-06-08 08:31 | PDOC.FM ---
- Subjective Subjective: Pt has continued nausea with eating, this appears to be a chronic issue. Diarrhea has resolved. She has no new complaints and had no acute issues over night. ROS was negative for any additional symptoms. - Objective MAR Reviewed: Yes Vital Signs & Weight: Vital Signs (12 hours) Temp Pulse Resp BP Pulse Ox 06/08/17 04:00 98.6 F 104 H 16 127/63 96 06/08/17 02:48 99 Weight Admit Weight 100.244 kg Weight 95.345 kg I&O: 06/07/17 06/08/17 06/09/17 06:59 06:59 06:59 Intake Total 740 711.4 Output Total 1999 Balance -1260 711.4 Result Diagrams: 06/08/17 05:16 06/08/17 05:16 Phys Exam - Physical Examination Constitutional: NAD HEENT: PERRLA, moist MMs Neck: no JVD, full ROM Respiratory: clear to auscultation bilateral Cardiovascular: no significant murmur irregularly irregular Gastrointestinal: soft, non-tender, no distention, positive bowel sounds Musculoskeletal: no edema Neurological: non-focal, normal sensation, moves all 4 limbs Psychiatric: normal affect, A&O x 3 Skin: no rash Dx/Plan (1) Fluid overload Code(s): E87.70 - FLUID OVERLOAD, UNSPECIFIED Status: Acute Qualifiers: Hypervolemia type: other Qualified Code(s): E87.79 - Other fluid overload (2) Atrial fibrillation with RVR Code(s): I48.91 - UNSPECIFIED ATRIAL FIBRILLATION Status: Chronic (3) End stage renal disease on dialysis Code(s): N18.6 - END STAGE RENAL DISEASE; Z99.2 - DEPENDENCE ON RENAL DIALYSIS Status: Chronic (4) HLD (hyperlipidemia) Code(s): E78.5 - HYPERLIPIDEMIA, UNSPECIFIED Status: Chronic Qualifiers: Hyperlipidemia type: unspecified Qualified Code(s): E78.5 - Hyperlipidemia , unspecified (5) HTN (hypertension) Code(s): I10 - ESSENTIAL (PRIMARY) HYPERTENSION Status: Chronic Qualifiers: Hypertension type: essential hypertension Qualified Code(s): I10 - Essential (primary) hypertension (6) Morbid obesity Code(s): E66.01 - MORBID (SEVERE) OBESITY DUE TO EXCESS CALORIES Status: Chronic - Plan Plan: 1. Fluid overload -resolved. - continue MWF HD 2. Afib w/RVR -currently on a cardizem drip per Dr. Harris' recommendation -HR has been in the 90s for most of the night. Drip is being managed by cards and is currently at 5. -Beta geno will be restarted today -pt was placed on Lovenox for anticoagulation dt having a subtheraputic INR after pt was taken off of warfarin to prep for possible shunt revision. Will discuss plan with Dr. North today. 3. Positive cultures -2 cultures are positive for staph capitis from the same site. Wound infection grew Staph A. Both are sensitive to doxy, will dc vanc and start doxy today -pt will be ready for dc once infection is ruled out and HR is under control. 3. HTN -controlled. -Continue home meds -follow BP after HD -pressures have been board[place] line low dt cardizem 4. ESRD -HD today 5. DM2 -consistent carb diet -SSI -Home insulin 6. HLD -continue home statin 7. Morbid obesity -habematolel on weight loss 8. Anemia -mild and asymptomatic -likely 2/2 ESRD
--- NOTE | 2017-06-08 08:47 | PQF ---
DATE: 06-06-17 ATTN: DR. JOE MARTÍNEZ / DR. RUPA MONTE Please exercise your independent, professional judgment in responding to the clarification form. Clinical indicators are provided on the bottom of this form for your review Please check appropriate box(s): HEART FAILURE: A.TYPE: [ ] Systolic / HFrEF [ ] Diastolic / HFpEF [ ] Combined Systolic / Diastolic B.ACUITY [ ] Acute[ ] Acute on Chronic [ ] Chronic C.WITH (if appropriate) [ ] Hypertensive Heart Disease[ ] Hypertensive Heart and Kidney Disease [ x ] Other diagnosis _pt does not have documented heart failure and had a normal EF with no mention of dCHF in April. Symptoms likely dt fluid overload secondary to ESRD [ ] Unable to determine In addition, please specify: Present on Admission (POA): [ ] Yes [ ] No [ ] Unable to determine For continuity of documentation, please document condition throughout progress notes and discharge summary. Thank You. CLINICAL INDICATORS - SIGNS / SYMPTOMS / LABS H&P: ACUTE DYSPNEA 2/2 TO VOLUME OVERLOAD CONSULT NOTE DR. CHAVARRIA 06-05-17: SHE WAS FOUND TO BE IN CHF. ASSESSMENT AND PLAN: CONGESTIVE HEART FAILURE. HX OF DIASTOLIC DYSFUNCTION CONSULT NOTE DR. CHAVARRIA 06-06-17: PLEASE NOTE SHE RECEIVED EMERGENT DIALYSIS YESTERDAY FOR THE CHF. PN DR. EARL BARRAGAN: MS. GARCIA HAS PULMONARY EDEMA CXR 06-05-17: CARDIOMEGALY WITH VASCULAR CONGESTION WITHOUT OVERT ALVEOLAR EDEMA OR CONFLUENT PNEUMONIA. RISKS: H&P: HX OF A FIB, HTN, CAD TREATMENTS: CARDIAC MONITORING / TELEMETRY (This form is maintained as a part of the permanent medical record) 2014 [employer] All Rights Reserved RENATO [email or web address] Office: [phone] [facility]
[2017-06-08] MEDS ORDERED: Doxycycline 100 MG CAP PO SCH (09:00)
[2017-06-08] MEDS ORDERED: Sulfameth/Trimethoprim DS 800-160mg TAB PO SCH (09:00)
[2017-06-08] MEDS ORDERED: Epoetin (ESRD) 20,000 UNITS/ML SC SCH (10:00)
--- NOTE | 2017-06-08 10:21 | PRG ---
DATE OF SERVICE: 06/08/2017 SUBJECTIVE: Ms. Hoffmann is a 67-year-old female with ESRD and currently undergoing hemodialys is. I am at the bedside supervising her dialysis. We are attempting to remove fluid removal only a s tolerated. Blood pressure is slightly on the low side at the current time - 98/70. No complaints of chest pain, no shortness of breath. PHYSICAL EXAMINATION: VITAL SIGNS: Blood pressure 97/60, heart rate 104, respiratory rate 16, temperature 98.6, pulse oxi metry 96%. GENERAL: Noted to be awake, supine, obese, not in distress. SKIN: Adequate turgor. HEENT: Slightly pale conjunctivae, anicteric sclerae. NECK: No neck mass, no carotid bruits, no JVD. CHEST: No deformities. LUNGS: Clear breath sounds. No wheezing, no crackles. HEART: Normal sinus rhythm. No murmur, no gallops or rubs. ABDOMEN: Globular, soft, nontender. No masses. EXTREMITIES: No edema, no deformities. MEDICATIONS: 06/08/2017 - Reviewed. LABORATORY: 06/08/2017 - White count 4.7, hemoglobin 9.7, sodium 133, potassium 3.9, chloride 102, carbon dioxide 24, BUN 9, creatinine 3.15, glucose 96, calcium 8. ASSESSMENT AND PLAN: 1. Bacteremia - on intravenous vancomycin and on doxycycline. 2. End-stage renal disease, stable. Tolerating current hemodialysis regimen. Fluid removal only a s tolerated by the patient. 3. Congestive heart failure, resolved. 4. Atrial fibrillation - patient was on anticoagulation and she is off of IV Cardizem. 5. Anemia. Restart Epogen 7500 units subcu every week.
[2017-06-08] MEDS: Calcium Acetate 667 MG CAP PO SCH ×3 (10:55→17:35)
[2017-06-08] MEDS: Calcium Carbonate 500 MG ChewTAB PO SCH ×3 (10:56→21:39)
[2017-06-08] MEDS: Docusate 100 MG CAP PO SCH ×2 (10:57→19:52)
--- NOTE | 2017-06-08 11:13 | PDOC.CTH ---
<Kirti Lakhani - Last Filed: 06/08/17 11:11> Cardiology Progress Note - Subjective The pt was seen and examined. No overnight events. No cardiac complaints. She is having HD at this moment. Still complains of ABD discomfort - Objective Vital Signs Temp Pulse Resp BP Pulse Ox 06/08/17 04:00 98.6 F 104 H 16 127/63 96 06/08/17 02:48 99 Admit Weight 221 lb Weight 210 lb 3.2 oz 06/07/17 06/08/17 06/09/17 06:59 06:59 06:59 Intake Total 740 711.4 Output Total 1999 Balance -1260 711.4 - Physical Examination General/Neuro: alert & oriented x3 Neck: no JVD present Lungs: CTA (diminished at bases) Heart: other: (Irregular) Abdomen: soft Extremities: other: (No edemas) - Labs Result Diagrams: 06/08/17 05:16 06/08/17 05:16 Troponin/CKMB CK-MB (CK-2) 1.0 ng/mL (0-6.6) 06/05/17 20:48 Troponin I 0.018 ng/mL (< 0.028) 06/05/17 20:48 - Assessment/Plan 1. Afib w/RVR - Hx of chronic Afib with Coumadin (her Coumadin was on hold for her AV graft revision); 1 episode of HR up to 150s for 1 hr this AM; HR has been 80-90s with Diltiazem IV 5mg/h and Metoprolol 50mg daily; On Lovenox; cont. monitor on tele 2. Sepsis - on IV antibiotics; managed by PCP 3. CAD with s/p stent placement in LAD and RCA in 2014 - stable; cont. monitor on tele 4. ESRD - HD on MWF; managed by Dr North 5. HTN - stable with current medication; cont. monitor 6. Hyperlipidemia - start Lipitor 40mg daily 7. PVD with hx of bilat. toe amputation - cont. monitor 8. Morbid obesity MAR reviewed Review of Systems - Review of Systems Constitutional: reports: no symptoms reported EENTM: reports: no symptoms reported Respiratory: reports: no symptoms reported Cardiac (ROS): reports: no symptoms reported ABD/GI: reports: see HPI <Harris,G Milad - Last Filed: 06/08/17 14:07> Cardiology Progress Note - Objective Vital Signs Temp Pulse Resp BP Pulse Ox 06/08/17 12:10 97.8 F 92 18 118/47 L 97 06/08/17 11:55 98.6 F 104 H 16 98 06/08/17 04:00 98.6 F 104 H 16 127/63 96 06/08/17 02:48 99 Admit Weight 221 lb Weight 210 lb 3.2 oz 06/07/17 06/08/17 06/09/17 06:59 06:59 06:59 Intake Total 740 711.4 Output Total 1999 Balance -1260 711.4 - Labs Result Diagrams: 06/08/17 05:16 06/08/17 05:16 Troponin/CKMB CK-MB (CK-2) 1.0 ng/mL (0-6.6) 06/05/17 20:48 Troponin I 0.018 ng/mL (< 0.028) 06/05/17 20:48 - Assessment/Plan Pt. seen and eval. I agree with the A/P by the ASH WORKER. Will start po diltizem and d/ c IV dilt. If the rate is controlled she could be d/c'd tomorrow. When ok with surgery and nephrology she needs to resume the coumadin.
[2017-06-08] MEDS ORDERED: Vancomycin HCl 1.25 GM in Sodium Chloride 0.9% 250 ML 250 ML IVPB SCH (12:15)
[2017-06-08] MEDS ORDERED: Vancomycin HCl 500 MG in Sodium Chloride 0.9% 100 ML IVPB SCH (12:15)
[2017-06-08] MEDS ORDERED: Vancomycin HCl 750 MG in Sodium Chloride 0.9% 250 ML 250 ML IVPB SCH (12:15)
[2017-06-08] MEDS ORDERED: HOLD VANCOMYCIN FOR LEVEL >20 FS SCH (12:15)
[2017-06-08] MEDS ORDERED: Vancomycin HCl 1 GM in Premix Bag 1 BAG IVPB SCH (12:15)
[2017-06-08] MEDS: Alogliptin 6.25 MG TAB PO SCH (12:59)
[2017-06-08] MEDS: Losartan 25 MG TAB PO SCH (12:59)
[2017-06-08] MEDS: Calcitriol 0.25 MCG CAP PO SCH (12:59)
[2017-06-08] MEDS: Atorvastatin Calcium 40 MG TAB PO SCH (13:00)
[2017-06-08] MEDS: Ammonium Lactate 12% Lotion 225 GM BOT TOP SCH ×2 (13:01→21:36)
[2017-06-08] MEDS: Clotrimazole 1 % Cream 30 GM TUBE TOP SCH ×2 (13:01→21:36)
[2017-06-08] MEDS: Nystatin Cream 15 GM TUBE TOP SCH ×2 (13:06→21:36)
[2017-06-08] MEDS ORDERED: Diltiazem 125 MG in Sodium Chloride 0.9% 100 ML IVPB SCH (14:02)
--- NOTE | 2017-06-08 14:31 | ADD-PRG ---
DATE OF SERVICE: 06/08/2017 ADDENDUM Please added as an addendum to the note of Dr. Wing Land. Mr. Hoffmann is currently in dialysis. Gregg matthews is still on a very low rate diltiazem drip. We are also transitioning her to p.o. beta geno al madhu with Cardiology. She will likely be able to be discharged later today. She is growing some Sta ph capitis out of her blood cultures and we will continue her with inter-dialysis vancomycin for the next 10-14 days.
[2017-06-08] MEDS: Ketotifen Fumarate 0.025% Ophth Soln 5 ml Bottle EA EYE SCH ×2 (15:13→21:37)
[2017-06-08] MEDS ORDERED: Ondansetron HCl/PF 4 MG/2 ML Vial IVP PRN (21:26)
[2017-06-08] MEDS: rOPINIRole HCl 0.25 MG TAB PO SCH (21:38)
[2017-06-08] MEDS: Enoxaparin Sodium 100 MG/ML SYRINGE SC SCH (21:39)
--- NOTE | 2017-06-09 05:18 | PDOC.FM ---
- Subjective Subjective: Pt feels well today and has no specific complaint. HR has been under 100 all afternoon and night. There were no acute events over night. - Objective MAR Reviewed: Yes Vital Signs & Weight: Vital Signs (12 hours) Temp Pulse Resp BP Pulse Ox 06/09/17 04:00 98.5 F 69 18 131/61 98 06/09/17 00:00 98.3 F 63 16 131/60 99 06/08/17 20:05 98.8 F 80 18 106/53 L 92 L Weight Admit Weight 100.244 kg Weight 94.438 kg I&O: 06/07/17 06/08/17 06/09/17 06:59 06:59 06:59 Intake Total 740 711.4 775 Output Total 2000 1500 Balance -1260 711.4 -725 Result Diagrams: 06/09/17 04:52 06/09/17 04:52 <[place] - Last Filed: 06/09/17 07:24> - Objective Vital Signs & Weight: Vital Signs (12 hours) Temp Pulse Resp BP Pulse Ox 06/09/17 04:00 98.5 F 69 18 131/61 98 06/09/17 00:00 98.3 F 63 16 131/60 99 Weight Admit Weight 221 lb Weight 208 lb 3.2 oz I&O: 06/08/17 06/09/17 06/10/17 06:59 06:59 05:59 Intake Total 711.4 775 Output Total 1500 Balance 711.4 -725 Result Diagrams: 06/09/17 04:52 06/09/17 04:52 <Sampson Ellison - Last Filed: 06/09/17 10:23> Phys Exam - Physical Examination Constitutional: NAD HEENT: moist MMs Neck: no JVD, full ROM Respiratory: clear to auscultation bilateral Cardiovascular: no significant murmur irregularly irregular Gastrointestinal: soft, non-tender, no distention, positive bowel sounds Musculoskeletal: no edema, pulses present Neurological: non-focal, normal sensation, moves all 4 limbs Psychiatric: normal affect, A&O x 3 Skin: no rash <[place] - Last Filed: 06/09/17 07:24> Dx/Plan (1) Fluid overload Code(s): E87.70 - FLUID OVERLOAD, UNSPECIFIED Status: Resolved Qualifiers: Hypervolemia type: other Qualified Code(s): E87.79 - Other fluid overload (2) Atrial fibrillation with RVR Code(s): I48.91 - UNSPECIFIED ATRIAL FIBRILLATION Status: Chronic (3) End stage renal disease on dialysis Code(s): N18.6 - END STAGE RENAL DISEASE; Z99.2 - DEPENDENCE ON RENAL DIALYSIS Status: Chronic (4) HLD (hyperlipidemia) Code(s): E78.5 - HYPERLIPIDEMIA, UNSPECIFIED Status: Chronic Qualifiers: Hyperlipidemia type: unspecified Qualified Code(s): E78.5 - Hyperlipidemia , unspecified (5) HTN (hypertension) Code(s): I10 - ESSENTIAL (PRIMARY) HYPERTENSION Status: Chronic Qualifiers: Hypertension type: essential hypertension Qualified Code(s): I10 - Essential (primary) hypertension (6) Morbid obesity Code(s): E66.01 - MORBID (SEVERE) OBESITY DUE TO EXCESS CALORIES Status: Chronic - Plan Plan: 1. Fluid overload -resolved. - continue MWF HD 2. Afib w/RVR -pt has been moved to PO diltiazem -HR has not been over 100 since starting PO dilt -pt will not be anti coagulated dt shunt revision in near future. Will defer to Dr. North's management 3. Positive cultures -Will continue IV vanc during HD for 1 week. 3. HTN -controlled. -Continue home meds -follow BP after HD 4. ESRD -Continue HD MWF 5. DM2 -consistent carb diet -SSI -Home insulin 6. HLD -continue home statin 7. Morbid obesity -lower brule on weight loss 8. Anemia -mild and asymptomatic -likely 2/2 ESRD -Dr North will restart epogen Disp: DC home today <[place] - Last Filed: 06/09/17 07:24> Attending Addendum - Attending Addendum I personally evaluated the patient and discussed the management with [ Shanda] I agree with the History, Examination, Assessment and Plan documented above with any addition or exceptions noted below. Plan for discharge today. Will continue antibiotic with dialysis for coagulase negative staph bacetermia. Discussed plan with Dr. North today. <Sampson Ellison - Last Filed: 06/09/17 10:23>
[2017-06-09 05:32] LABS: #Eosinphils 0.1 thou/uL (0.0-0.7); #Lymphocytes 1.5 thou/uL (1.20-3.40); #Monocytes 0.4 thou/uL (0.11-0.59); #Neutrophils 2.4 thou/uL (1.40-6.50); %Basophils 0.9 % (0.0-1.0); %Lymphocytes 34.7 % (21.0-51.0); %Monocytes 8.6 % (0.0-10.0); Hematocrit 33.6 % (36.0-47.0); Mean Platelet Volume 8.6 fL (7.4-10.4); White Blood Cell (WBC) Count 4.4 thou/uL (4.8-10.8)
[2017-06-09 05:45] LABS: Anion Gap 9 mmol/L (10-20); BUN (Urea Nitrogen) 4 mg/dL (9.8-20.1); Calc. Creatinine Clearance 41 mL/min (70-130); Calcium 8.2 mg/dL (7.8-10.44); Carbon Dioxide 29 mmol/L (23-31); Chloride 101 mmol/L (98-107); Estimated GFR-MDRD 24
[2017-06-09] MEDS ORDERED: Heparin 10,000 UNITS/ 10 ML VIAL ONE (08:35)
[2017-06-09] MEDS: Calcium Carbonate 500 MG ChewTAB PO SCH (10:55)
[2017-06-09] MEDS: Alogliptin 6.25 MG TAB PO SCH (10:55)
[2017-06-09] MEDS: Docusate 100 MG CAP PO SCH (10:56)
[2017-06-09] MEDS: Losartan 25 MG TAB PO SCH (10:56)
[2017-06-09] MEDS: Calcium Acetate 667 MG CAP PO SCH (10:57)
[2017-06-09] MEDS: Atorvastatin Calcium 40 MG TAB PO SCH (10:57)
[2017-06-09] MEDS: Calcitriol 0.25 MCG CAP PO SCH (10:57)
[2017-06-09] MEDS: Ketotifen Fumarate 0.025% Ophth Soln 5 ml Bottle EA EYE SCH (10:58)
[2017-06-09] MEDS: Nystatin Cream 15 GM TUBE TOP SCH (10:58)
[2017-06-09] MEDS: Ammonium Lactate 12% Lotion 225 GM BOT TOP SCH (11:00)
[2017-06-09] MEDS: Clotrimazole 1 % Cream 30 GM TUBE TOP SCH (11:01)
--- NOTE | 2017-06-09 12:54 | PRG ---
RENAL MEDICINE PROGRESS NOTE DATE OF SERVICE: 06/09/2017 SUBJECTIVE: Ms. Hoffmann is a 67-year-old female with ESRD. She is now going to be discharged today. She had a bacteremia and currently getting antibiotics. We will continue the IV vancomycin as an outpatient. She is feeling better. Coumadin was temporarily placed on hold due to the antic ipated surgery. However, surgery has been postponed. The patient voices no new complaints today. Denies any chest pain or shortness of breath. OBJECTIVE: VITAL SIGNS: Blood pressure is 131/61, heart rate 69, respiratory rate 18, temperature 98.5 and pul se ox 98%. GENERAL: Noted to be awake, supine, comfortable, morbidly obese. SKIN: Adequate turgor. HEENT: She has pinkish conjunctivae, anicteric sclerae. NECK: No neck mass, no carotid bruits, no JVD. CHEST: No deformities. LUNGS: Clear breath sounds. HEART: Normal sinus rhythm. No murmur, no gallops, no rubs. ABDOMEN: Globular, soft and nontender. No masses. EXTREMITIES: Trace edema. MEDICATIONS: Medications of 06/09/2017 were reviewed. LABORATORY DATA: Laboratories of 06/09/2017; white count 4.4 and hemoglobin 10.3. Sodium 135, pota ssium 3.6, chloride 101, carbon dioxide 29, BUN 4, creatinine 2.06, glucose 83 and calcium 8.2. ASSESSMENT AND PLAN: 1. End-stage renal disease - stable. Continue Sunday, Sunday and Sunday dialysis regimen. Tole rating said treatment. No indication for any dialytic intervention. Overall, I agree with current management. 2. Paroxysmal atrial fibrillation - I did instruct the patient's daughter to resume back her Coumad in regimen at home. My only concern is her history of noncompliance. We will reinforce compliance carefully with this patient. 3. Bacteremia. Continuing antibiotics. We will continue IV vancomycin as an outpatient for 2-3 we eks more. I did discuss this with the nursing staff at the dialysis. 4. Anemia. We will be continuing Epogen as an outpatient.
--- NOTE | 2017-06-09 15:20 | EKG ---
Test Reason : TACHY Blood Pressure : / mmHG Vent. Rate : 110 BPM Atrial Rate : 111 BPM P-R Int : 000 ms QRS Dur : 080 ms QT Int : 340 ms P-R-T Axes : 000 -05 157 degrees QTc Int : 460 ms Atrial fibrillation with rapid ventricular response Nonspecific ST and T wave abnormality , probably digitalis effect No STEMI Abnormal ECG Confirmed by MENDOZA GARCIA M.D. ([id number]), supervising editor news reel RASHIDA GOMEZ ([id number]) on 06/09/2017 3:20:23 PM Referred By: Confirmed By:MENDOZA GARCIA M.D.
[2017-06-09 19:34] VITALS: BP 118/64; TEMP 97.2
--- NOTE | 2017-06-11 09:38 | DIS-2 ---
DATE OF ADMISSION: 06/05/2017 DATE OF DISCHARGE: 06/09/2017 ADMITTING ATTENDING: Leonard Wilcox M.D. DISCHARGE ATTENDING: Sampson Ellison M.D. RESIDENT: [place] DO CONSULTANTS: Colton North M.D., Nephrology and Coral Harris M.D., Cardiology. PROCEDURES: Hemodialysis. DISCONTINUED MEDICATIONS: Carvedilol 3.125 mg p.o. b.i.d. DISCHARGE MEDICATIONS: Zoloft 50 mg p.o. daily, diclofenac 1% gel 2 grams topical b.i.d., calcium carbonate 500 mg p.o. t.i.d., tramadol 50 mg p.o. t.i.d. p.r.n. pain, Ropinirole 0.25 mg p.o. at bedtime, Pataday 1 drop each eye daily, Protonix 40 mg p.o. at bedtime, Zofran 4 mg p.o. q. 6 hours p.r.n. nausea , vomiting, Nystatin cream topical b.i.d., metoprolol succinate 50 mg p.o. daily , Metoprolol 5 mg p.o. p.r.n., losartan 50 mg p.o. daily, Ativan 0.5 mg p.o. t.i.d. p.r.n., Januvia 50 mg p.o. daily, [place] 10/325 one half p.o. q. 6 hours p.r.n., Fluticasone nose spray in each naris daily, Colace 100 mg p.o. b.i.d., Lotrimin 1% topical b.i.d., calcium acetate 1334 mg p.o. t.i.d. with meals, calcitriol 0.25 mcg p.o. daily, atorvastatin 40 mg p.o. b.i.d., aspirin 81 mg p.o. daily, ammonium lactate 400 grams topical b.i.d., warfarin 2 mg p.o. daily , vancomycin to be dosed at hemodialysis for 1 week, and diltiazem 240 mg p.o. daily. HOSPITAL COURSE: The patient was admitted for shortness of breath diagnosed with fluid removed. The patient was taken to urgent hemodialysis which resolved symptoms and was followed by her typical energy efficiency engineer, Dr. North, while admitted. While admitted, the patient developed atrial fibrillation with RVR. This has happened in the past. The patient is typically rate controlled. There was some difficulty in controlling her rate while admitted, she was put on Cardizem drip, eventually moved over to Cardizem p.o. per Cardiology recommendations. This controlled her rate, and once moved over to p.o. Cardizem , she typically had a heart rate in the 80s. There was some concern over the patient's anticoagulation status due to the atrial fibrillation; however, there is a plan to remove her shunt for dialysis and so therefore, the patient is currently anticoagulated. This will be managed by Dr. North outpatient. While admitted, there were multiple cultures that came back positive. There is some concern for bacteremia from an infected shunt site on her right arm. The patient was on vancomycin and will be discharged on vancomycin for an additional week to be dosed at hemodialysis. At the time of discharge, atrial fibrillation was under control. Fluid status was euvolemic and the patient was stable. DISPOSITION: Discharge is stable. DISCHARGE INSTRUCTIONS: 1. Location: Home. 2. Diet: High protein, heart healthy. 3. Activity: Ad bobby. 4. Followup: With Dr. Harris within 1 week; Dr. North on Sunday from dialysis; and PCP at discharge. BEKAH
== END 2017-06-09 16:45 | disposition home health service (06) | DRG 871 ==
LOC: ERS 10:29 → IMCU/EMU 12:09 → 2NO 06-06 18:47
PROVIDERS: ADMIT Family Medicine; ATTEND Family Medicine
PROC: 5A1D70Z Performance of Urinary Filtration, Intermittent, Less than 6 Hours Per Day (ICD-10-PCS; principal; 2017-06-05)
DX: A41.9 Sepsis, unspecified organism (principal); N18.6 End stage renal disease; J96.01 Acute respiratory failure with hypoxia; E87.2 Acidosis; I12.0 Hypertensive chronic kidney disease with stage 5 chronic kidney disease or end stage renal disease; I48.0 Paroxysmal atrial fibrillation; E11.22 Type 2 diabetes mellitus with diabetic chronic kidney disease; K31.84 Gastroparesis; E11.40 Type 2 diabetes mellitus with diabetic neuropathy, unspecified; E87.70 Fluid overload, unspecified; Z99.2 Dependence on renal dialysis; I25.10 Atherosclerotic heart disease of native coronary artery without angina pectoris; Z89.422 Acquired absence of other left toe(s); Z89.421 Acquired absence of other right toe(s); Z88.8 Allergy status to other drugs, medicaments and biological substances; Z79.01 Long term (current) use of anticoagulants; Z79.82 Long term (current) use of aspirin; Z79.4 Long term (current) use of insulin; Z68.39 Body mass index [BMI] 39.0-39.9, adult; D63.1 Anemia in chronic kidney disease; K21.9 Gastro-esophageal reflux disease without esophagitis; E87.6 Hypokalemia; J44.9 Chronic obstructive pulmonary disease, unspecified; G47.33 Obstructive sleep apnea (adult) (pediatric); I25.2 Old myocardial infarction; E11.43 Type 2 diabetes mellitus with diabetic autonomic (poly)neuropathy; Z95.5 Presence of coronary angioplasty implant and graft; I08.0 Rheumatic disorders of both mitral and aortic valves; E78.5 Hyperlipidemia, unspecified; E88.09 Other disorders of plasma-protein metabolism, not elsewhere classified; E66.01 Morbid (severe) obesity due to excess calories
CPT/HCPCS: 36415; 36416; 71010; 71275; 80048; 80053; 80202; 82553; 82805; 83605; 83630; 84484; 85025; 85379; 85610; 85730; 87040; 87070; 87077; 87149; 87186; 87205; 87324; 87340; 87449; 90935; 93005; 94760; 96365; 96366; 96368; G0257; G8978-GP-CN; G8979-GP-CM; J1644; J1650; J2405; J2543; J3370; J7050; J7620; Q0162; Q4081